=== PATIENT | male | born 1990 | race Caucasian/White ===

== ENCOUNTER 2019-11-12 17:21 | Emergency (ER) | payer OTHER ==
[~2019-11-12] VITALS: Ht 172.7 cm; Wt 65.8 kg
[2019-11-12 17:27] VITALS: BP 153/90
[2019-11-12] MEDS ORDERED: BACTRIM DS TAB1 EACH PO ×3 (18:30→23:38)
[2019-11-12] MEDS ORDERED: KEFLEX500 M1 PO ×3 (18:30→23:38)
== END 2019-11-12 19:00 ==
LOC: ER 17:21
DX: L02.511 Cutaneous abscess of right hand (principal); L03.113 Cellulitis of right upper limb; Z90.49 Acquired absence of other specified parts of digestive tract

== ENCOUNTER 2019-11-12 23:09 | Emergency (ER) | payer OTHER ==
[~2019-11-12] VITALS: Ht 172.7 cm; Wt 65.8 kg
[~2019-11-12 23:09] MED LIST: BACTRIM DS TAB1 EACH PO; KEFLEX500 M1 PO
[2019-11-12 23:10] VITALS: BP 126/85
[2019-11-12] MEDS ORDERED: KEFLEX500 M1 PO (23:38)
[2019-11-12] MEDS ORDERED: BACTRIM DS TAB1 EACH PO (23:38)
== END 2019-11-12 23:38 | disposition home or self-care (01) ==
LOC: ER 23:09
DX: L02.414 Cutaneous abscess of left upper limb (principal); F17.210 Nicotine dependence, cigarettes, uncomplicated; Z90.49 Acquired absence of other specified parts of digestive tract

== ENCOUNTER 2019-11-13 07:08 | Emergency (ER) | payer OTHER ==
[~2019-11-13] VITALS: Ht 172.7 cm; Wt 65.8 kg
[2019-11-13 09:13] VITALS: BP 110/60
== END 2019-11-13 09:13 | disposition home or self-care (01) ==
LOC: ER 07:08
DX: L02.413 Cutaneous abscess of right upper limb (principal); F17.210 Nicotine dependence, cigarettes, uncomplicated; Z90.49 Acquired absence of other specified parts of digestive tract

== ENCOUNTER 2020-03-11 22:08 | Emergency (ER) | payer OTHER ==
[~2020-03-11] VITALS: Ht 180.3 cm; Wt 68.0 kg
[2020-03-11 22:40] LABS: ABSOLUTE NEUTROPHILS 6.1 thou/uL (1.4-8.2); BASOPHILS 0.3 % (0.0-2.0); EOSINOPHILS 0.2 % (0.0-3.0); HEMATOCRIT 40.8 % (42.0-52.0); HEMOGLOBIN 13.8 gm/dL (14.0-18.0); LYMPHOCYTES 20.4 % (24.0-44.0); MCH 30.4 pg (26.0-34.0); MCHC 33.9 g/dL (28.0-37.0); MCV 89.8 fL (80.0-100.0); MONOCYTES 9.5 % (1.0-8.0); PLATELET COUNT 356 thou/uL (150-400); POLYS 69.6 % (36.0-66.0); RBC 4.55 mil/uL (4.50-6.00); RDW 13.9 % (10.5-14.5); WBC 8.7 thou/uL (4.0-11.0)
[2020-03-11 22:47] LABS: CALCIUM 8.5 mg/dL (8.5-10.1); POTASSIUM 3.5 mmol/L (3.5-5.1)
[2020-03-11 22:51] LABS: AMP/METHAMP POSITIVE (Negative); BARBITURATES Negative (Negative); BENZODIAZEPINES POSITIVE (Negative); COCAINE Negative (Negative); METHADONE Negative (Negative); OPIATES Negative (Negative); PCP Negative (Negative)
[2020-03-11 22:53] LABS: TOTAL BILIRUBIN 0.3 mg/dL (0.2-1.0); TOTAL PROTEIN 7.4 g/dL (6.4-8.2)
[2020-03-12 04:08] VITALS: BP 126/81
== END 2020-03-12 04:12 | disposition home or self-care (01) ==
LOC: ER 22:08
PROVIDERS: Emergency Medicine
DX: F10.920 Alcohol use, unspecified with intoxication, uncomplicated (principal); F15.10 Other stimulant abuse, uncomplicated; F17.210 Nicotine dependence, cigarettes, uncomplicated; Z90.49 Acquired absence of other specified parts of digestive tract; Z90.89 Acquired absence of other organs; Y90.7 Blood alcohol level of 200-239 mg/100 ml